=== PATIENT | female | born 1965 | race Caucasian/White ===

== ENCOUNTER 2019-01-18 22:55 | Emergency (ER) | payer SELFPAY ==
[2019-01-18 23:26] LABS: #Basophils 0.1 thou/uL (0.0-0.2); #Eosinphils 0.1 thou/uL (0.0-0.7); #Lymphocytes 2.1 thou/uL (1.20-3.40); #Monocytes 0.4 thou/uL (0.11-0.59); #Neutrophils 3.3 thou/uL (1.40-6.50); %Basophils 1.6 % (0.0-1.0); %Eosinophils 1.3 % (0.0-10.0); %Lymphocytes 34.7 % (21.0-51.0); %Monocytes 6.5 % (0.0-10.0); Hemoglobin 13.8 g/dL (12.0-16.0); Mean Corpuscular HGB CONC 32.4 g/dL (32.0-36.0); Mean Corpuscular Hemoglobin 31.1 pg (27.0-31.0); Mean Corpuscular Volume 96.1 fL (78.0-98.0); Mean Platelet Volume 5.9 fL (7.4-10.4); Platelet Count 336 thou/uL (130-400); RBC Distribution Width 11.9 % (11.5-14.5); Red Blood Cell (RBC) Count 4.44 mill/uL (4.20-5.40)
--- NOTE | 2019-01-18 23:27 | RAD ---
PORTABLE CHEST ONE VIEW: 01/18/2019 11:16 p.m. HISTORY: Shortness of breath. Weakness. Fatigue. FINDINGS: The heart size is normal. The aorta is tortuous. The lungs are well expanded without focal areas of consolidation, pneumothoraces, or pleural effusions. There is evidence of old granulomatous disease . IMPRESSION: No radiographic evidence of acute cardiopulmonary process. POS: [facility]
[2019-01-18 23:39] LABS: ALT (SGPT) Less than 7 U/L (8-55); AST (SGOT) 13 U/L (5-34); Alkaline Phosphatase 91 U/L (40-150); Anion Gap 14 mmol/L (10-20); BUN (Urea Nitrogen) 20 mg/dL (9.8-20.1); Bilirubin, Total 0.3 mg/dL (0.2-1.2); CK (CPK) 53 U/L (29-168); Calc. Creatinine Clearance 0 mL/min (70-130); Calcium 9.3 mg/dL (7.8-10.44); Carbon Dioxide 21 mmol/L (22-29); Chloride 112 mmol/L (98-107); Estimated GFR-MDRD 74; Globulin 2.7 g/dL (2.4-3.5); Glucose 85 mg/dL (70-105); Potassium 3.7 mmol/L (3.5-5.1); Protein, Total 6.7 g/dL (6.0-8.3); Sodium 143 mmol/L (136-145)
[2019-01-19] MEDS ORDERED: Lorazepam 2 MG/ML VIAL ONE (00:44)
--- NOTE | 2019-01-21 12:15 | EKG ---
Test Reason : Blood Pressure : / mmHG Vent. Rate : 075 BPM Atrial Rate : 075 BPM P-R Int : 132 ms QRS Dur : 078 ms QT Int : 382 ms P-R-T Axes : 068 051 080 degrees QTc Int : 426 ms Normal sinus rhythm Possible Left atrial enlargement Borderline ECG Confirmed by AIMEE GIL ([id number]), senior technical editor XOCHITL CABELLO ([id number] on 01/21/2019 12:15:10 PM Referred By: Confirmed By:AIMEE GIL
== END 2019-01-19 01:40 | disposition home or self-care (01) ==
LOC: ERS 22:55
DX: R53.83 Other fatigue (principal)
CPT/HCPCS: 71045; 80053; 82550; 84484; 85025; 93005; 94760; 96374; J2060

== ENCOUNTER 2020-11-10 22:24 | Observation (INO) | payer SELFPAY ==
[2020-11-11] MEDS ORDERED: Ondansetron PF 4 MG/2 ML Vial IVP PRN (00:26)
[2020-11-11] MEDS ORDERED: Bisacodyl 5 MG TAB PO PRN (00:26)
[2020-11-11] MEDS ORDERED: Zolpidem Tartrate 5 MG TAB PO PRN (00:26)
[2020-11-11] MEDS ORDERED: HYDROcodone/Acetaminophen 5/325 mg Tablet PO PRN (00:26)
[2020-11-11] MEDS: Sodium Chloride 0.9% 1,000 ML IV SCH ×2 (02:08→18:38)
[2020-11-11 05:55] LABS: Band 1 % (5-11); Eosinophils 3 % (0-10); Hemoglobin 13.4 g/dL (12.0-16.0); Lymphocytes 39 % (21-51); MDiff Complete? YES; Mean Corpuscular HGB CONC 32.4 g/dL (32.0-36.0); Mean Corpuscular Hemoglobin 31.8 pg (27.0-31.0); Mean Corpuscular Volume 97.9 fL (78.0-98.0); Mean Platelet Volume 6.4 fL (7.4-10.4); Monocytes 6 % (0-10); Neutrophil 51 % (42-75); Platelet Count 318 thou/uL (130-400); Platelet Morphology Comment Appears Adequate; RBC Distribution Width 12.1 % (11.5-14.5); RBC Morphology Normal; Red Blood Cell (RBC) Count 4.22 mill/uL (4.20-5.40); White Blood Cell (WBC) Count 4.8 thou/uL (4.8-10.8)
[2020-11-11 06:19] LABS: ALT (SGPT) Less than 7 U/L (8-55); AST (SGOT) 13 U/L (5-34); Albumin 3.7 g/dL (3.5-5.0); Alkaline Phosphatase 75 U/L (40-110); Anion Gap 10 mmol/L (10-20); BUN (Urea Nitrogen) 9 mg/dL (9.8-20.1); Bilirubin, Total 0.2 mg/dL (0.2-1.2); Calc. Creatinine Clearance 76 mL/min (70-130); Calcium 9.4 mg/dL (7.8-10.44); Carbon Dioxide 31 mmol/L (22-29); Chloride 108 mmol/L (98-107); Globulin 2.6 g/dL (2.4-3.5); Glucose 98 mg/dL (70-105); Potassium 3.5 mmol/L (3.5-5.1); Protein, Total 6.3 g/dL (6.0-8.3); Sodium 145 mmol/L (136-145); Troponin I Less than 0.010 ng/mL (< 0.028)
[2020-11-11] MEDS: Famotidine 20 MG TAB PO SCH ×2 (08:29→21:10)
[2020-11-11] MEDS: Enoxaparin Sodium 40 MG/0.4 ML SYRINGE SC SCH (08:30)
[2020-11-11] MEDS: Acetaminophen 325 MG TAB PO PRN ×2 (08:30→16:54)
[2020-11-11] MEDS ORDERED: Lorazepam 2 MG/ML VIAL SLOW IVP SCH (08:30)
[2020-11-11 09:25] LABS: Free T4 (Free Thyroxine) 0.87 ng/dL (0.70-1.48); Thyroid Stimulating Hormone 2.6568 uIU/mL (0.35-4.94)
[2020-11-11 15:45] LABS: Bacteria/HPF None Seen HPF (None Seen); Bilirubin Negative (Negative); Blood, Urine Negative (Negative); Clarity Clear (Clear); Glucose, Urine (Dipstick) Normal (Negative); Ketone, Urine Negative (Negative); Leukocyte 25 Leu/uL (Negative); Mucous/LPF Rare LPF (<2+); Nitrite Negative (Negative); Protein, Urine (Dipstick) 10 mg/dL (Neg-Trace); RBC/HPF 0-3 HPF (0-3); Specific Gravity, Urine 1.031 (1.002-1.036); Squamous Epithelial 0-3 HPF (0-3); WBC/HPF 0-3 HPF (0-3); pH, Urine 6.5 (5.0-9.0)
[2020-11-11 15:47] LABS: Urine Culture Reflex Yes Yes
[2020-11-11 15:55] LABS: Amphetamine Detected (NotDetected); Barbiturates Screen Not Detected (NotDetected); Benzodiazepine Screen Detected (NotDetected); Cocaine Metabolite Screen Not Detected (NotDetected); Medtox Control Line Valid? VALID (VALID); Medtox Reader # READER 4; Methadone Not Detected (NotDetected); Methamphetamine Detected (NotDetected); Opiate Screen Not Detected (NotDetected); Oxycodone Screen Not Detected (NotDetected); Phencyclidine (PCP) Not Detected (NotDetected); THC/Cannabinoid Screen Not Detected (NotDetected); Tricyclic Screen Not Detected (NotDetected)
[2020-11-11 21:07] LABS: SARS-CoV-2 PCR by NAA Not Detected (NotDetected)
[2020-11-12] MEDS: Acetaminophen 325 MG TAB PO PRN (00:05)
[2020-11-12 04:22] VITALS: BMI 22.8
[2020-11-12] MEDS: Famotidine 20 MG TAB PO SCH (08:47)
[2020-11-12] MEDS: Enoxaparin Sodium 40 MG/0.4 ML SYRINGE SC SCH (08:48)
[2020-11-12] MEDS ORDERED: Meclizine HCl 25 MG TAB PO SCH (09:00)
[2020-11-12 12:02] VITALS: BP 130/79; TEMP 98
== END 2020-11-12 13:56 | disposition home or self-care (01) ==
LOC: ERS 22:24 → 2SE 23:32
PROVIDERS: ADMIT Internal Medicine; ATTEND Internal Medicine
DX: R53.83 Other fatigue (principal); R26.9 Unspecified abnormalities of gait and mobility; M47.812 Spondylosis without myelopathy or radiculopathy, cervical region; M50.31 Other cervical disc degeneration, high cervical region; R51.9 Headache, unspecified; Z79.899 Other long term (current) drug therapy; Z88.2 Allergy status to sulfonamides; Z20.822 Contact with and (suspected) exposure to COVID-19
CPT/HCPCS: 36415; 70551; 72141; 80053; 80306; 81001; 82550; 84439; 84443; 84481; 84484; 85007; 85027; 87086; 87635; 93306; 96374; 96375; 99285; G0378; J2060; J2405; U0003; U0005